=== PATIENT | male | born 2000 | race Caucasian/White ===

== ENCOUNTER 2022-09-20 21:45 | Emergency (ER) | payer OTHER ==
[~2022-09-20] VITALS: Ht 172.7 cm; Wt 61.2 kg
[2022-09-20] MEDS ORDERED: NEOM10DR11 RIGHT EAR (23:16)
[2022-09-20] MEDS ORDERED: HYDR-3980 PO (23:16)
--- NOTE | 2022-09-20 23:24 | NUR ---
Patient discharged to home in stable condition. Written and verbal after care instructions given. Patient verbalizes understanding of instructions. Stressed follow up or return to ER for worsening s/s. PATIENT IS A/OX4, NAD NOTED. PATIENT ACCOMPANIED BY HIS GF
[2022-09-20 23:25] VITALS: BP 115/71
== END 2022-09-20 23:26 | disposition home or self-care (01) ==
LOC: ER 21:45
DX: H60.91 Unspecified otitis externa, right ear (principal); F17.210 Nicotine dependence, cigarettes, uncomplicated; Z79.899 Other long term (current) drug therapy
CPT/HCPCS: A4663

== ENCOUNTER 2023-06-16 17:26 | Emergency (ER) | payer SELFPAY ==
[~2023-06-16] VITALS: Ht 170.2 cm; Wt 65.8 kg
[~2023-06-16 17:26] MED LIST: HYDR-3980 PO; NEOM10DR11 RIGHT EAR
[2023-06-16 17:40] VITALS: O2SAT 99
[2023-06-16] MEDS ORDERED: IBUP-1955 PO (18:00)
== END 2023-06-16 18:14 | disposition home or self-care (01) ==
LOC: ER 17:28
DX: J02.8 Acute pharyngitis due to other specified organisms (principal); B97.89 Other viral agents as the cause of diseases classified elsewhere; Z79.1 Long term (current) use of non-steroidal anti-inflammatories (NSAID); Z79.899 Other long term (current) drug therapy
CPT/HCPCS: A4606; A4663